=== PATIENT | male | born 1955 | race Caucasian/White ===

== ENCOUNTER → 2018-04-26 09:48 | Outpatient (CLI) | payer MEDICARE, MEDICAID, SELFPAY ==
[2018-04-26 11:01] LABS: Alanine Aminotransferase 32 IU/L (21-72); Albumin 4.5 g/dL (3.5-5.0); Albumin Globulin Ratio 1.5 (1.0-2.8); Alkaline Phosphatase 68 U/L (38-126); Aspartate Aminotransferase 27 IU/L (17-59); Bilirubin Total 0.5 mg/dL (0.2-1.3); Blood Urea Nitrogen 18 mg/dL (9-20); Calcium 9.5 mg/dL (8.4-10.2); Carbon Dioxide 28 mmol/L (22-32); Chloride 104 mmol/L (98-107); Estimated Glomerular Filt Rate > 60.0 mL/min (>60); Glucose 103 mg/dL (80-110); HEMOLYSIS < 15 (0-50); Magnesium 1.8 mg/dL (1.6-2.3); Potassium 3.9 mmol/L (3.4-5.1); Sodium 142 mmol/L (137-145); Total Protein 7.5 g/dL (6.3-8.2)
[2018-05-01 09:44] LABS: Lipoprofile NMR SEE SEPERATE REPORT
== END ==
PROVIDERS: Visit Provider Specialist
DX: I42.0 Dilated cardiomyopathy (principal); E78.5 Hyperlipidemia, unspecified
CPT/HCPCS: 36415; 80053; 83704; 83735

== ENCOUNTER → 2018-05-10 08:56 | Outpatient (CLI) | payer MEDICARE, MEDICAID, SELFPAY ==
[2018-05-10 10:41] LABS: Blood Urea Nitrogen 18 mg/dL (9-20); Calcium 9.2 mg/dL (8.4-10.2); Carbon Dioxide 29 mmol/L (22-32); Chloride 105 mmol/L (98-107); Estimated Glomerular Filt Rate > 60.0 mL/min (>60); Glucose 102 mg/dL (80-110); HEMOLYSIS < 15 (0-50); Potassium 4.1 mmol/L (3.4-5.1); Sodium 141 mmol/L (137-145)
== END ==
PROVIDERS: PCP Physician Assistant; Visit Provider Specialist
DX: I42.0 Dilated cardiomyopathy (principal)
CPT/HCPCS: 36415; 80048

== ENCOUNTER → 2018-06-30 09:29 | Outpatient (CLI) | payer MEDICARE, MEDICAID, SELFPAY ==
--- NOTE | 2018-06-30 | DI.ECHO.S_ITS ---
[facility]---------+ [facility] +---------+ : : [address] : : : : [id number] : : : : Phone: [phone]+ Echocardiogram Report + + :Name: DAVEY MASON Study Date: 06/30/2018 Height: 68 in : :[facility] Weight: 201 lb : : Gender: Male BSA: 2.0 m2 : :: 1955 Age: 63 yrs BP: 110/70 mmHg: :Reason For Study: Cardiomyopathy, Dilated : : Performed By: Lina Burrows : :Referring: Maxim Bolton : + + Interpretation Summary The left ventricle is mildly dilated but is unchanged compared to the previous study. Left ventricular systolic function is moderate to severely reduced with the ejection fraction estimated to be 30-35% with a significant dyssynchronous contraction pattern, consistent with a conduction abnormality, and moderate global hypokinesis that is worse in the proximal and mid inferior wall and inferoseptum which are akinetic but this is unchanged from the previous study. Diastolic parameters suggest a relaxation abnormality of the left ventricle, consistent with probable normal filling pressures. There has been no significant change since the previous study. The right ventricle is normal in size and function and appears more dynamic compared to the previous study. The right ventricular systolic pressure is estimated to be at least 27 mmHg based on an estimated right atrial pressure of 3 mm Hg, and is likely similar compared to the previous study. Both atria are normal in size and both have decreased in size compared to the previous study. There is mild to moderate mitral regurgitation with an eccentric jet of mitral regurgitation that is directed posterolaterally but is unchanged compared to the previous study. There is no other significant valvular heart disease. The ascending aorta is mildly enlarged and measures slightly larger compared to the previous study. Procedure: A two-dimensional transthoracic echocardiogram with color flow and Doppler was performed. The study quality was technically good. Comparison is made with the echocardiogram of 10-20-16. The patient was in normal sinus rhythm during the exam. Left Ventricle: The left ventricle is mildly dilated. This is unchanged compared to the previous study. There is normal left ventricular wall thickness. Left ventricular systolic function is moderate to severely reduced. The ejection fraction is estimated to be 30-35%. There is a significant dyssynchronous contraction pattern, consistent with a conduction abnormality. There is moderate global hypokinesis of the left ventricle. That is worse in the proximal and mid inferior and inferoseptal but this is unchanged and the previous study. Diastolic parameters suggest a relaxation abnormality of the left ventricle, consistent with probable normal filling pressures. There has been no significant change since the previous study. Right Ventricle: The right ventricle is normal in size and function. This is more dynamic compared to the previous study. Atria: Both atria are normal in size. This is decreased in size compared to the previous study. The interatrial septum is intact with no evidence for an atrial septal defect. Mitral Valve: The mitral valve is grossly normal. There is mild to moderate mitral regurgitation. There is an eccentric jet of mitral regurgitation that is directed posterolaterally. This is unchanged compared to the previous study. Aortic Valve: The aortic valve is trileaflet. The aortic valve opens well. No aortic regurgitation is present. Tricuspid Valve: The tricuspid valve is normal in structure and function. There is trace tricuspid regurgitation. The right ventricular systolic pressure is estimated to be at least 27 mmHg based on an estimated right atrial pressure of 3 mm Hg. This is similar compared to the previous study. Pulmonic Valve: The pulmonic valve is not well seen, but is grossly normal. There is no pulmonic valvular regurgitation. There is no other significant valvular heart disease. Great Vessels: The aortic root is normal size. The ascending aorta is mildly enlarged. This is slightly larger compared to the previous study. The aortic arch is normal in size. The IVC is of normal diameter and collapses greater than 50% with a sniff. This suggests a low right atrial pressure of 3 mm Hg. Pericardium/ Pleura There is no pericardial effusion. There is no pleural effusion. MMode/2D Measurements & Calculations LVIDd: 6.2 cm Ao root diam: 3.6 cm LVIDs: 5.5 cm Aortic Jxn: 2.7 cm FS: 11.6 % asc Aorta Diam: 3.8 cm EPSS: 1.6 cm Ao Arch Diam (Prox Trans): 2.7 cm IVSd: 0.87 cm LVPWd: 0.98 cm LV wilkinson. diameter/BSA (cm/m^2): 3.0 LV sys. diameter/BSA (cm/m^2): 2.7 LA dimension: 3.3 cm RA long axis: 4.6 cm LA A2 area: 21.5 cm2 RA area: 16.9 cm2 LA A4 area: 24.6 cm2 RA vol: 52.4 ml LA length (vol): 6.6 cm RA : 25.6 ml/m2 LA vol: 68.4 ml IVC diam: 1.1 cm LA vol index: 33.4 ml/m2 RVDd major: 5.6 cm RVD1 (basal): 3.1 cm RVD2 (mid): 2.9 cm Doppler Measurements & Calculations Ao V2 max: 105.7 cm/sec MV E max cristi: 74.6 cm/sec Ao V2 mean: 76.8 cm/sec MV A max cristi: 109.6 cm/sec Ao max P.5 mmHg MV E/A: 0.68 Ao mean P.6 mmHg Med Peak E' Cristi: 2.4 cm/sec Ao V2 VTI: 25.1 cm E/E' med: 30.8 Lat Peak E' Cristi: 5.9 cm/sec E/E' lat: 12.6 E/e' average: 21.7 MV dec time: 0.12 sec TR max cristi: 243.6 cm/sec TR max P.7 mmHg PA V2 max: 70.3 cm/sec PA V2 mean: 47.7 cm/sec PA mean P.0 mmHg PA Accel Time: 0.12 sec Reading Physician:PM
== END ==
PROVIDERS: Visit Provider Physician Assistant Medical
DX: I34.0 Nonrheumatic mitral (valve) insufficiency (principal); I42.0 Dilated cardiomyopathy
CPT/HCPCS: 93306

== ENCOUNTER → 2018-07-05 12:02 | Outpatient (CLI) | payer MEDICARE, MEDICAID, SELFPAY ==
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
[2018-07-05 12:38] LABS: Estimated Glomerular Filt Rate > 60.0 mL/min (>60)
== END ==
PROVIDERS: PCP Family Medicine; Visit Provider Family Medicine
DX: R91.8 Other nonspecific abnormal finding of lung field (principal); J43.9 Emphysema, unspecified; I25.10 Atherosclerotic heart disease of native coronary artery without angina pectoris
CPT/HCPCS: 36415; 71260; 82565

== ENCOUNTER → 2018-08-23 11:37 | Outpatient (CLI) | payer MEDICARE, MEDICAID, SELFPAY ==
[2018-08-23 12:46] LABS: Alanine Aminotransferase 25 IU/L (21-72); Albumin 4.1 g/dL (3.5-5.0); Albumin Globulin Ratio 1.6 (1.0-2.8); Alkaline Phosphatase 73 U/L (38-126); Aspartate Aminotransferase 22 IU/L (17-59); Bilirubin Total 0.4 mg/dL (0.2-1.3); Blood Urea Nitrogen 16 mg/dL (9-20); Calcium 9.4 mg/dL (8.4-10.2); Carbon Dioxide 28 mmol/L (22-32); Chloride 101 mmol/L (98-107); Estimated Glomerular Filt Rate > 60.0 mL/min (>60); Globulin 2.6 g/dL (1.7-4.1); Glucose 93 mg/dL (80-110); HEMOLYSIS < 15 (0-50); Potassium 4.9 mmol/L (3.4-5.1); Sodium 137 mmol/L (137-145); Total Protein 6.7 g/dL (6.3-8.2)
[2018-08-28 10:47] LABS: Lipoprofile NMR SEE SEPERATE REPORT
== END ==
PROVIDERS: Visit Provider Specialist
DX: I42.0 Dilated cardiomyopathy (principal); E78.2 Mixed hyperlipidemia
CPT/HCPCS: 36415; 80053; 83704

== ENCOUNTER 2018-09-07 14:07 | Day surgery (SDC) | payer MEDICARE, MEDICAID, SELFPAY ==
--- NOTE | 2018-09-07 | PATH_ITS ---
[facility] Accession Number: [id number] . 01 Material submitted: . PART A: colon - SIGMOID POLYP AT 40CM PART B: colon - SIGMOID POLYP AT 30CM PART C: colon - SIGMOID POLYP AT 25CM PART D: colon - SIGMOID POLYP AT 20CM PART E: colon - SIGMOID POLYP AT 15CM PART F: rectum - RECTAL POLYPS X3 . 02 Diagnosis: A. Sigmoid Colon Polyp at 40 cm: Tubular adenoma. . B. Sigmoid Colon Polyp at 30 cm: Polypoid mixed tubular villiform adenoma totally excised in the plane of section. . C. Biopsy, Sigmoid Colon Polyp at 25 cm: Polypoid submucosal lipoma, negative for atypia. . D. Biopsy, Sigmoid Colon Polyp at 20 cm: Hyperplastic polyp involving both biopsy fragments. . E. Biopsy, Sigmoid Colon Polyp at 15 cm: Polypoid mixed tubular villiform adenoma. . F. Biopsy, Rectal Polyps: Hyperplastic polyp involving all biopsy fragments. [facility]/09/12/2018 . 02 Electronically signed: . Dakotah Schmidt MD, Pathologist NPI- [id number] . 01 Gross description: . Part A: SIGMOID POLYP AT 40CM: Received in formalin are multiple fragment(s) of beaver, soft tissue measuring 0.8 x 0.6 x 0.4 cm in aggregate submitted entirely in 1 cassette(s) Part B: SIGMOID POLYP AT 30CM: Received in formalin is 1 fragment(s) of beaver, soft tissue measuring 0.8 x 0.7 x 1.7 cm which is inked, bisected and submitted entirely in 1 cassette(s) Part C: SIGMOID POLYP AT 25CM: Received in formalin is 1 fragment(s) of beaevr, soft tissue measuring 1.2 x 0.7 x 0.2 cm submitted entirely in 1 cassette(s) Part D: SIGMOID POLYP AT 20CM: Received in formalin are 2 fragment(s) of beaver, soft tissue measuring 0.5 x 0.3 x 0.3 cm to 0.4 x 0.3 x 0.2 cm submitted entirely in 1 cassette(s) Part E: SIGMOID POLYP AT 15CM: Received in formalin is 1 fragment(s) of beaver, soft tissue measuring 0.8 x 0.5 x 1.1 cm which is inked, bisected and submitted entirely in 1 cassette(s) Part F: RECTAL POLYPS X3: Received in formalin are multiple fragment(s) of beaver, soft tissue measuring 0.7 x 0.6 x 0.2 cm in aggregate submitted entirely in 1 cassette(s) /CKI /CKI . 02 Pathologist provided ICD-10: D12.5 . 02 CPT . 238109, 443586, 646970, 839015, 139710, 200002 Performed at: 01 [facility] [address] [id number] MD Mario Metz MD Phone: [phone] Performed at: 02 [facility] [place] [address] [place], [place] [id number] MD Celsa Mac MD Phone: [phone]
--- NOTE | 2018-09-07 13:14 | PM.HP.1 ---
History of Present Illness Date Patient Seen: 09/07/18 Time Patient Seen: 15:14 Chief complaint: [id number] Narrative: 63yo M for first screening colonoscopy. No family history, no alarm symptoms. He has dilated cardiomyopathy and is followed for this, no recent changes. Patient History Social History household members: family Meds Home Medications Medication Instructions Recorded Confirmed Type atorvastatin 80 mg PO DAILY 09/07/18 09/07/18 History lisinopril 2.5 mg PO DAILY 09/07/18 09/07/18 History metoprolol succinate 25 mg PO DAILY 09/07/18 09/07/18 History Allergies Allergy/AdvReac Type Severity Reaction Status Date / Time No Known Drug Allergies Allergy Verified 09/07/18 14:31 Review of Systems Constitutional Constitutional: Reports as per HPI Exam Narrative Exam Narrative: AAO, NAD, male of healthy weight EOMI, MMM, no scleral icterus unlabored RA soft, nt/nd MAEW visible skin dry and intact Assessment & Plan (1) Screening for colorectal cancer: Current visit: No Status: Acute Assessment & Plan narrative: - plan for low risk screening colonoscopy --> all R/B/A discussed and pt wishes to proceed
[2018-09-07 14:34] VITALS: BP 116/77; PULSE 98; RESP 16; TEMP 36.3; O2SAT 95; BMI 28.8
[2018-09-07] MEDS: SODIUM CHLORIDE 0.9% 1,000 ML 200 ML IV (14:41)
[2018-09-07] MEDS: fentaNYL 250 MCG/5 ML INJ IV (17:41)
[2018-09-07] MEDS: MIDAZOLAM 5 MG/5 ML VIAL IV (17:41)
[2018-09-07 17:58] VITALS: BP 136/78; PULSE 100; RESP 17; TEMP 36.1; O2SAT 95
[2018-09-07 18:04] VITALS: BP 123/89; PULSE 100; RESP 19; O2SAT 95
[2018-09-07 18:07] VITALS: BP 137/93; PULSE 99; RESP 19; TEMP 36.2; O2SAT 95
--- NOTE | 2018-09-07 18:11 | SUR.PHASEI ---
stable pacu stay
[2018-09-07 18:30] VITALS: BP 128/86; PULSE 88; RESP 19; TEMP 36.4; O2SAT 96
--- NOTE | 2018-09-08 10:31 | PM.OP.ENDO ---
Operative Date/Time/Diagnoses Date of procedure: 09/07/18 Time of procedure: 18:00 Pre-op diagnosis: Low risk screening Post-op diagnosis: same Procedure & Clinicians Study performed: Low risk screening colonoscopy Same procedure as scheduled: Yes Indications: 63yo M with no family or personal history of CRC for first sceening colonoscopy. All risks, benefits, and alternatives discussed. Surgeon: Joelle Hall Procedure Notes SCOAP/Timeout: 1658 Procedure in detail: After obtaining informed consent, the patient was brought to the GI suite and placed in the left lateral decubitus position on the examination table. After placement of appropriate monitors, the patient was given incremental doses of Versed and Fentanyl until an adequate level of sedation was achieved; patient noted as we started that he was a five decade narcotic user so he remained light throughout the procedure. A time out was held per SCOAP protocol. A digital rectal examination was performed and did not reveal any masses or obstructing lesions. The colonoscope was gently passed into the patient's anus and the entire colon navigated to the level of the cecum with minimal difficulty. Prep was poor with thick green liquid and moderate particulate matter, most of which was cleared with suction and irrigation. Once in the cecum, the scope was slowly withdrawn being sure to go before and beyond all mucosal folds and prominences as able to get a thorough examination. Several polyps were identified and removed throughout the sigmoid and rectum, detailed below. Removal and retrieval was arduous due to patient's light sedation and constant movement as well as him expelling gas frequently, causing colon wall collapse and spasm. At the level of the rectal vault, the scope was retroflexed and the internal anal canal was examined. The scope was straightened and air aspirated from the colon. The instrument was removed from the patient's body and the procedure was concluded. The patient was allowed to awaken from sedation without difficulty and taken to the post-anesthesia care unit in good condition. Scope withdrawal time: 27 Sedation minutes: 50 Findings: polyp (1. Sigmoid polyp @40cm (0.5cm) 2. Sigmoid polyp @30cm (2cm) 3. Sigmoid polyp @25cm (0.5cm) 4. Sigmoid polyp @20cm (1cm) 5. Sigmoid polyp @15cm (0.5cm) 6. Rectal polyps x3 (1-2mm)) Specimen(s): other (Sigmoid polyps x5, Rectal polyps x3) Complications: none Impression: 1. Numerous sigmoid polyps, ranging from 0.5cm - 2cm 2. Rectal polyps x3, 1-2mm 3. High tolerance to medications, would recommend propofol sedation for further procedures Recommendations: Colonscopy in 1 year (pending path) Follow up: weeks Disposition: PACU
== END 2018-09-07 18:45 | disposition home or self-care (01) ==
PROVIDERS: Visit Provider Surgery
PROC: 0DJD8ZZ Inspection of Lower Intestinal Tract, Via Natural or Artificial Opening Endoscopic (ICD-10-PCS; CPT 45378; principal; 2018-09-07 15:00)
DX: Z12.11 Encounter for screening for malignant neoplasm of colon (principal); D12.5 Benign neoplasm of sigmoid colon; D12.8 Benign neoplasm of rectum
CPT/HCPCS: 45380; 88305; 99152; 99153; J2250; J3010

== ENCOUNTER → 2018-10-30 14:54 | Outpatient (CLI) | payer MEDICARE, MEDICAID, SELFPAY ==
[2018-10-30 16:00] LABS: BUN Creatinine Ratio 22.2 (6-22); Blood Urea Nitrogen 20 mg/dL (9-20); Calcium 9.4 mg/dL (8.4-10.2); Carbon Dioxide 27 mmol/L (22-32); Chloride 106 mmol/L (98-107); Estimated Glomerular Filt Rate > 60.0 mL/min (>60); Glucose 101 mg/dL (80-110); HEMOLYSIS < 15 (0-50); Potassium 4.5 mmol/L (3.4-5.1); Sodium 141 mmol/L (137-145)
== END ==
PROVIDERS: Visit Provider Specialist
DX: I42.0 Dilated cardiomyopathy (principal)
CPT/HCPCS: 36415; 80048

== ENCOUNTER → 2019-02-26 12:19 | Outpatient (CLI) | payer MEDICARE, MEDICAID, SELFPAY ==
[2019-02-26 13:58] LABS: Alanine Aminotransferase 31 IU/L (<50); Albumin 4.4 g/dL (3.5-5.0); Albumin Globulin Ratio 1.9 (1.0-2.8); Alkaline Phosphatase 70 U/L (38-126); Aspartate Aminotransferase 34 IU/L (17-59); BUN Creatinine Ratio 24.4 (6-22); Bilirubin Total 0.7 mg/dL (0.2-1.3); Blood Urea Nitrogen 22 mg/dL (9-20); Calcium 9.7 mg/dL (8.4-10.2); Carbon Dioxide 27 mmol/L (22-32); Chloride 105 mmol/L (98-107); Estimated Glomerular Filt Rate > 60.0 mL/min (>60); Globulin 2.3 g/dL (1.7-4.1); Glucose 92 mg/dL (80-110); HEMOLYSIS 23 (0-50); Magnesium 1.7 mg/dL (1.6-2.3); Potassium 4.7 mmol/L (3.4-5.1); Sodium 141 mmol/L (137-145); Total Protein 6.7 g/dL (6.3-8.2)
[2019-02-28 10:50] LABS: Lipoprofile NMR SEE SEPARATE REPORTS
== END ==
PROVIDERS: Visit Provider Specialist
DX: I42.0 Dilated cardiomyopathy (principal); E78.2 Mixed hyperlipidemia
CPT/HCPCS: 36415; 80053; 83704; 83735

== ENCOUNTER → 2019-03-15 08:55 | Outpatient (CLI) | payer MEDICARE, MEDICAID, SELFPAY ==
[2019-03-15 10:22] LABS: BUN Creatinine Ratio 21.1 (6-22); Blood Urea Nitrogen 19 mg/dL (9-20); Calcium 9.3 mg/dL (8.4-10.2); Carbon Dioxide 28 mmol/L (22-32); Chloride 103 mmol/L (98-107); Estimated Glomerular Filt Rate > 60.0 mL/min (>60); Glucose 180 mg/dL (80-110); HEMOLYSIS < 15 (0-50); Magnesium 1.8 mg/dL (1.6-2.3); Potassium 4.4 mmol/L (3.4-5.1); Sodium 138 mmol/L (137-145)
== END ==
PROVIDERS: Visit Provider Specialist
DX: I42.0 Dilated cardiomyopathy (principal); E78.2 Mixed hyperlipidemia
CPT/HCPCS: 36415; 80048; 83735

== ENCOUNTER 2019-03-26 09:55 | Day surgery (SDC) | payer MEDICARE, MEDICAID, SELFPAY ==
[2019-03-26] VITALS (7 sets, daily range): BP systolic 100–142; BP diastolic 60–90; PULSE 85–115; RESP 11–20; TEMP 36.2–36.6; O2SAT 94–98; BMI 29.1
--- NOTE | 2019-03-26 | PATH_ITS ---
[facility] Accession Number: [id number] . 01 Material submitted: . PART A: cecum - CECAL POLYP BIOPSY PART B: colon - COLON POLYP BIOPSY AT 40 CM PART C: colon - COLON POLYP BIOPSY AT 20 CM . 02 Diagnosis: A. Cecum, Polyp, Biopsy: Tubular adenoma. . B. Colon, Polyp at 40 cm, Biopsy: Tubular adenoma. . C. Colon, Polyp at 20 cm, Biopsy: Multiple fragments of tubular adenoam and hyperplastic polyp. [facility]V 03/27/2019 1322 Local . 02 Electronically signed: . Celsa Mac MD, Pathologist NPI- [id number] . 01 Gross description: . Part A: CECAL POLYP BIOPSY: Received in formalin are 3 fragment(s) of beaver, soft tissue measuring 0.1 x 0.1 x 0.1 cm to 0.3 x 0.2 x 0.2 cm submitted entirely in 1 cassette(s) Part B: COLON POLYP BIOPSY AT 40 CM: Received in formalin are 2 fragment(s) of beaver, soft tissue measuring 0.2 x 0.2 x 0.2 cm to 0.3 x 0.2 x 0.2 cm submitted entirely in 1 cassette(s) Part C: COLON POLYP BIOPSY AT 20 CM: Received in formalin are multiple fragment(s) of beaver, soft tissue measuring 0.1 x 0.1 x 0.1 cm to 0.3 x 0.2 x 0.2 cm submitted entirely in 1 cassette(s) /[facility] [place] 03/26/2019 1950 Local . 02 Pathologist provided ICD-10: D12.0, D12.6 . 02 CPT . 995266, 411727, 500620 Performed at: [address], [place], [place] [id number] MD Mario Metz MD Phone: [phone] Performed at: 02 [place] [id number] [place] [id number] MD Celsa Mac MD Phone: [phone]
[2019-03-26] MEDS: LACTATED RINGERS 1,000 ML 100 ML IV (11:15)
--- NOTE | 2019-03-26 12:50 | PM.HP.1 ---
History of Present Illness History of Present Illness Date Patient Seen: 03/26/19 Time Patient Seen: 12:50 Chief complaint: [id number] Narrative: The patient is a gentleman here for a colonoscopy. He had some polyps removed and this colonoscopy 6 months ago. Recommendation was made to repeat the exam to make sure everything was removed and nothing had grown back. He did not have a good prep at his last colonoscopy and it was very uncomfortable with a lot of movement felt secondary to his heavy narcotic use therefore he is brought in for an exam with the use of probe with all or general anesthesia as per the anesthesiologists recommendations and performance. Patient History Medical History Anxiety (Acute) Arrhythmia (Acute) Arthritis (Acute) Bladder cancer (Chronic) Congenital heart disease (Chronic) Depression (Acute) Emphysema of lung (Acute) Former smoker (Acute) Hepatitis A (Acute) Marijuana smoker (Acute) Myocardial infarct (Acute) Poor sleep (Acute) PTSD (post-traumatic stress disorder) (Acute) Surgical History H/O heart artery stent (Acute) H/O lateral meniscus repair of left knee (Acute) S/P rotator cuff repair (Acute) Family & Social History Family History Mother Heart disease Father Heart disease Family/Other Diabetes mellitus Social History: household members family Tobacco & Substance use: Smoking Status Never smoker alcohol intake current Meds Home Medications and Allergies Home Medications Medication Instructions Recorded Confirmed Type atorvastatin 80 mg PO DAILY 09/07/18 03/26/19 History lisinopril 2.5 mg PO BID 09/07/18 03/26/19 History hydroxyzine pamoate [Vistaril] 25 mg PO BID 03/26/19 03/26/19 History metoprolol succinate 50 mg PO DAILY 03/26/19 03/26/19 History Allergies Allergy/AdvReac Type Severity Reaction Status Date / Time No Known Drug Allergies Allergy Verified 03/26/19 11:13 Review of Systems Review of Systems ROS Unobtainable: All systems reviewed & are unremarkable except as noted in HPI and below Exam Vital Signs (past 8 hours): - 03/26/19 11:16 Temperature 97.1 F L Pulse Rate 115 H Respiratory Rate 20 Blood Pressure 142/85 H Pulse Oximetry 98 Oxygen Delivery Method Room Air Narrative Exam Narrative: Pleasant cooperative patient no apparent distress. Lungs are clear to auscultation. No rales or rhonchi. Heart regular rate and rhythm no murmur gallop. Abdomen is soft nontender without mass. No obvious hernias. Patient is alert and oriented x3. Assessment & Plan Assessment & Plan narrative: The patient for a screening colonoscopy. I have discussed the procedure with them. Risks of bleeding, perforation which would necessitate major operation, failure to find remove all lesions, the potential tattoo were all discussed. All questions were answered. They wished to proceed.
--- NOTE | 2019-03-26 12:53 | PM.PREOP ---
Pre-operative Note Interval Note History & Physical reviewed/Exam performed by Physician: Yes Changes to H&P: No
--- NOTE | 2019-03-26 14:13 | PM.OP.ENDO ---
Operative Date/Time/Diagnoses Date of procedure: 03/26/19 Time of procedure: 14:00 Pre-op diagnosis: History of polyps. Brought back to ensure completely removal and no regrowth of high risk polyps in the colon. Last exam 6 months ago. Post-op diagnosis: same (Multiple small polyps.) Procedure & Clinicians Study performed: Colonoscopy with cold biopsy and hot snare polypectomy Same procedure as scheduled: Yes Indications: Patient with a poor prep on prior exam with serrated adenomas and question of incomplete removal. Brought back for re-examination. Surgeon: Babak Jamil Procedure Notes SCOAP/Timeout: Performed Procedure in detail: The patient was placed in the left lateral decubitus position and underwent IV sedation directed by the surgeon consisting of fentanyl and Versed. Digital exam was unremarkable. His prostate is normal in size and without mass.. The scope was inserted and advanced through the rectum into the sigmoid, descending, transverse, and ascending colon. We reach the cecum identified by the ileocecal valve and the appendiceal opening. There was a small polyp there and it was biopsied and removed. The scope was gradually brought out. Additional Polyps were found at 40 cm and 20 cm. Hot snare was used to remove some of these and the remainder were cauterized to ensure complete removal.. The scope ultimately was retroflexed in the rectum. The appearance was normal. The scope was removed and the patient tolerated the procedure well. The prep was adequate. I had the suction greater of liquid material. Scope withdrawal time: 10 min (excludes bx time) Sedation minutes: 0 (Done by a monitored anesthesia care due to his poor tolerance of his last procedure and has chronic issues of opioids) Findings: diverticulosis (Sigmoid) and polyp (Multiple) Specimen(s): other (Polyps) Complications: none Post-procedure Recommendations: Colonscopy in 3 years
--- NOTE | 2019-03-26 14:24 | SUR.PHASEI ---
Patient A/O x 4. Denies pain/nausea. Tolerating po. + flatulence. States he needs to get home to smoke pot.
--- NOTE | 2019-03-26 14:47 | SUR.PHASEII ---
Patient sitting upright and denies any pain or nausea. Tolerating PO without difficulty.
--- NOTE | 2019-03-26 15:02 | SUR.PHASEII ---
Patient ambulating to bathroom with a steady gait, voided prior to discharge. Patient AAO x 3. Ambulated to waiting area to wait for ride home.
== END 2019-03-26 15:03 | disposition home or self-care (01) ==
PROVIDERS: Visit Provider Specialist
PROC: 0DJD8ZZ Inspection of Lower Intestinal Tract, Via Natural or Artificial Opening Endoscopic (ICD-10-PCS; CPT 45378; principal; 2019-03-26 07:45)
DX: Z12.11 Encounter for screening for malignant neoplasm of colon (principal); Z86.010 Personal history of colon polyps; F41.9 Anxiety disorder, unspecified; I25.2 Old myocardial infarction; F11.21 Opioid dependence, in remission; J43.9 Emphysema, unspecified; Z87.891 Personal history of nicotine dependence; D12.0 Benign neoplasm of cecum; K57.30 Diverticulosis of large intestine without perforation or abscess without bleeding; D12.6 Benign neoplasm of colon, unspecified; K63.5 Polyp of colon
CPT/HCPCS: 45385; 45380; J2704

== ENCOUNTER 2019-04-03 09:14 | Observation (INO) | payer MEDICARE, MEDICAID, SELFPAY ==
[2019-04-03] VITALS (12 sets, daily range): BP systolic 116–147; BP diastolic 76–97; PULSE 64–111; RESP 14–20; TEMP 36.2–36.7; O2SAT 93–99; BMI 29.5
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
[2019-04-03] MEDS: ALBUTEROL/IPRATROPIUM 3 ML AMPUL INH (09:59)
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
[2019-04-03 10:25] LABS: Add Manual Diff / Slide Review NO; Basophils Absolute Auto 100 /uL (0-100); Basophils Percent Auto 1.2 % (0-2); Eosinophils Absolute Auto 100 /uL (0-450); Eosinophils Percent Auto 2.5 % (2-4); Hematocrit 40.5 % (41-53); Hemoglobin 13.9 g/dL (13.5-17.5); Lymphocytes Absolute Auto 1800 /uL (1100-4500); Lymphocytes Percent Auto 30.6 % (25-40); Mean Corpuscular HGB Conc 34.3 % (30-36); Mean Corpuscular Hemoglobin 31.7 PG (26-34); Mean Corpuscular Volume 92.5 fL (80-100); Monocytes Absolute Auto 600 /uL (0-900); Monocytes Percent Auto 9.9 % (3-14); Neutrophils Absolute Auto 3300 /uL (1500-7000); Neutrophils Percent Auto 55.8 % (50-75); Platelet Count 266 X10^3/uL (150-400); Red Blood Cell Count 4.38 X10^6/uL (4.5-5.9); Red Cell Distribution Width 13.6 % (11.6-14.8); White Blood Cell Count 5.9 X10^3/uL (4.5-11.0)
[2019-04-03 10:39] LABS: Alanine Aminotransferase 25 IU/L (<50); Albumin Globulin Ratio 1.7 (1.0-2.8); Alkaline Phosphatase 82 U/L (38-126); Aspartate Aminotransferase 36 IU/L (17-59); Bilirubin Total 0.7 mg/dL (0.2-1.3); Blood Urea Nitrogen 12 mg/dL (9-20); Calcium 8.7 mg/dL (8.4-10.2); Carbon Dioxide 27 mmol/L (22-32); Chloride 105 mmol/L (98-107); Creatine Kinase 320 U/L (55-170); Estimated Glomerular Filt Rate > 60.0 mL/min (>60); Globulin 2.4 g/dL (1.7-4.1); Glucose 140 mg/dL (80-110); HEMOLYSIS < 15 (0-50); Potassium 4.1 mmol/L (3.4-5.1); Sodium 139 mmol/L (137-145); Total Protein 6.4 g/dL (6.3-8.2)
[2019-04-03 10:54] LABS: CKMB % Relative Index 1.2 % (1.5-5.0); Creatine Kinase MB 3.72 ng/mL (<2.37)
[2019-04-03 11:11] LABS: Troponin I 0.154 ng/mL (0.01-0.034)
[2019-04-03] MEDS: ASPIRIN 81 MG CHEW TAB 324 MG PO (11:14)
[2019-04-03 11:31] LABS: PTT Partial Thromboplastin Tim 35 SECONDS (26.4-36.2)
[2019-04-03] MEDS: HEPARIN 5,000 UNIT/ML VIAL 5000 UNIT IV (11:31)
[2019-04-03] MEDS: HEPARIN DRIP 25,000 UNIT/500 ML IV.SOLN 20 UNIT IV (11:33)
--- NOTE | 2019-04-03 12:06 | PC.NURSE ---
Trop noted to be elevated. IV placed and heparin given per MAR. pt denies CP at this time. remains on cardiac monitoring. 2nd troponin drawn and sent per order. needs met at this time.
[2019-04-03 13:15] LABS: Troponin I 0.163 ng/mL (0.01-0.034)
--- NOTE | 2019-04-03 15:43 | PC.NURSE ---
Addendum entered by Ashley Juan R.N. 04/03/19 15:47: Confirmed with ICU that classroom monitor is working. Original Note: Arrival to acute care: (late entry)- Arrived to floor approx [phone]. Settled into bed by special agent in charge Mitch. Heparin drip infusing and was verified by special agent in charge and the nurse from the ED. Patient wants to eat- informed him that we are waiting on MD to make rounds and input orders. Oriented to room and call light and encouraged to call with needs. Light within reach, bed alarm on.
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
[2019-04-03] MEDS: ATORVASTATIN 20 MG TABLET 80 MG PO (16:17)
[2019-04-03 18:30] LABS: Prothrombin Time 11.7 SECONDS (10.1-12.7)
[2019-04-03 18:33] LABS: PTT Partial Thromboplastin Tim 34 SECONDS (26.4-36.2)
--- NOTE | 2019-04-03 18:39 | PC.NURSE ---
Evening note: Shaheen resting in bed, visiting with family. Denies SOB at rest. Denies chest pain or nausea. Does report his lungs ache, lungs with soft expiratory wheeze throughout. VS stable, RA oxygen 92-95% with continuous pulse ox monitoring in place. Dr Acevedo here to see patient at 1515, new orders given to stop heparin drip which I did at approx 1530. IV saline locked. We are awaiting repeat troponin results.
[2019-04-03 18:53] LABS: Troponin I 0.138 ng/mL (0.01-0.034)
[2019-04-03] MEDS: LISINOPRIL 5 MG TABLET 2.5 MG PO (21:27)
[2019-04-04 06:00] LABS: Add Manual Diff / Slide Review NO; Basophils Absolute Auto 100 /uL (0-100); Basophils Percent Auto 0.9 % (0-2); Eosinophils Absolute Auto 200 /uL (0-450); Eosinophils Percent Auto 2.4 % (2-4); Hematocrit 41.4 % (41-53); Hemoglobin 13.7 g/dL (13.5-17.5); Lymphocytes Absolute Auto 2500 /uL (1100-4500); Lymphocytes Percent Auto 34.3 % (25-40); Mean Corpuscular HGB Conc 33.1 % (30-36); Mean Corpuscular Hemoglobin 31.4 PG (26-34); Mean Corpuscular Volume 94.7 fL (80-100); Monocytes Absolute Auto 700 /uL (0-900); Monocytes Percent Auto 9.7 % (3-14); Neutrophils Absolute Auto 3800 /uL (1500-7000); Neutrophils Percent Auto 52.7 % (50-75); Platelet Count 257 X10^3/uL (150-400); Red Blood Cell Count 4.37 X10^6/uL (4.5-5.9); Red Cell Distribution Width 13.7 % (11.6-14.8); White Blood Cell Count 7.2 X10^3/uL (4.5-11.0)
[2019-04-04 06:01] VITALS: BP 117/68; PULSE 87; RESP 18; TEMP 36.8; O2SAT 95
[2019-04-04 06:03] LABS: BUN Creatinine Ratio 14.4 (6-22); Blood Urea Nitrogen 13 mg/dL (9-20); Calcium 8.7 mg/dL (8.4-10.2); Carbon Dioxide 32 mmol/L (22-32); Chloride 103 mmol/L (98-107); Estimated Glomerular Filt Rate > 60.0 mL/min (>60); Glucose 94 mg/dL (80-110); HEMOLYSIS < 15 (0-50); Potassium 4.7 mmol/L (3.4-5.1); Sodium 139 mmol/L (137-145)
[2019-04-04] MEDS: ASPIRIN EC 81 MG TABLET PO (07:48)
[2019-04-04] MEDS: METOPROLOL ER 50 MG TABLET PO (07:48)
[2019-04-04] MEDS: LISINOPRIL 5 MG TABLET 2.5 MG PO (07:49)
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
[2019-04-04 09:33] VITALS: BP 130/75; PULSE 88; RESP 17; TEMP 36.8; O2SAT 94
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
--- NOTE | 2019-04-04 13:11 | PC.NURSE ---
Discharge: Pt reports he is ready for d/c. Has had an AK and Heart failure teaching in the past. Pt reports he always has a certain amt of chest pain, a 1-06/04, none this am, he reports he slept well during the night. Reviewed d/c information, brother here at time of teaching. Pt d/c home via auto w/brother.
== END 2019-04-04 11:30 | disposition home or self-care (01) ==
LOC: ED 13:17 → AC 13:41
PROVIDERS: Nurse Practitioner Adult Health; Admitting Provider Internal Medicine; Emergency Provider Emergency Medicine; Visit Provider Internal Medicine
DX: R79.89 Other specified abnormal findings of blood chemistry (principal); J70.5 Respiratory conditions due to smoke inhalation; I25.10 Atherosclerotic heart disease of native coronary artery without angina pectoris; J43.9 Emphysema, unspecified; F12.90 Cannabis use, unspecified, uncomplicated; F41.9 Anxiety disorder, unspecified; I25.2 Old myocardial infarction; F43.11 Post-traumatic stress disorder, acute; I42.0 Dilated cardiomyopathy; X08.8XXA Exposure to other specified smoke, fire and flames, initial encounter; Y92.009 Unspecified place in unspecified non-institutional (private) residence as the place of occurrence of the external cause
CPT/HCPCS: 36415; 71046; 80048; 80053; 82550; 82553; 84484; 85025; 85610; 85730; 93005; 93010; 94640; 94762; 96365; 96366; 96375; 99281; 99285; G0378; J1644

== ENCOUNTER → 2019-04-30 12:15 | Outpatient (CLI) | payer MEDICARE, MEDICAID, SELFPAY ==
[2019-04-03 15:49] VITALS: BMI 29.5
--- NOTE | 2019-04-30 | DI.US.S_ITS ---
PROCEDURE: US ABDOMEN COMPLETE INDICATIONS: RIGHT UPPER QUADRANT PAIN, LEFT FLANK PAIN TECHNIQUE: Real-time scanning was performed of the abdominal and retroperitoneal organs, with image documentation. COMPARISON: [place], [place], PET/CT SKULL BASE TO MID THIGH, 10/22/2016, 9:25. [facility], CT, CT CHEST W CON, 07/05/2018, 12:58. FINDINGS: Liver: Liver is normal in size and homogeneous in echotexture. Gallbladder: The gallbladder appears normal Biliary ducts: Intrahepatic bile ducts are non-dilated. Extrahepatic bile duct caliber measures 5.0 mm. Normal is 6-7 mm or less in diameter, or 10 mm or less post-cholecystectomy. Pancreas: Visualized portions of the pancreas are sonographically normal. Spleen: Spleen is normal in size and homogeneous in echotexture. Kidneys: Kidneys are normal in size and echotexture. Right kidney measures 9.8 cm long; left kidney measures 10.0 cm long. No hydronephrosis or nephrolithiasis. No solid masses. At the left mid kidney which appears to be a poorly visualized renal cortical cyst measures up to 2.8 cm. This was previously present on CT scanning for PET/CT 10/22/16 and had measured water in density. Aorta: Visualized aorta is normal in caliber at less than 3 cm. Iliacs: Proximal common iliac arteries are normal in caliber at less than 2.5 cm. IVC: Intrahepatic inferior vena cava is patent. Miscellaneous: No free abdominal fluid. IMPRESSION: No hydronephrosis or nephrolithiasis found. Previously identified renal cortical cyst again noted on the left. This was better seen by CT scanning in September of 2016. A definite source of right upper quadrant and left flank pain is not found. Dictated by: Randy Lopes M.D. on 04/30/2019 at 16:40 Approved by: Randy Lopes M.D. on 04/30/2019 at 16:44
== END ==
PROVIDERS: Visit Provider Physician Assistant Medical
DX: R10.11 Right upper quadrant pain (principal); N28.1 Cyst of kidney, acquired
CPT/HCPCS: 76700

== ENCOUNTER → 2019-05-11 15:19 | Outpatient (CLI) | payer MEDICARE, MEDICAID, SELFPAY ==
[2019-04-03 15:49] VITALS: BMI 29.5
[2019-05-11 16:34] LABS: BUN Creatinine Ratio 22.2 (6-22); Blood Urea Nitrogen 20 mg/dL (9-20); Calcium 9.3 mg/dL (8.4-10.2); Carbon Dioxide 30 mmol/L (22-32); Chloride 104 mmol/L (98-107); Estimated Glomerular Filt Rate > 60.0 mL/min (>60); Glucose 105 mg/dL (80-110); HEMOLYSIS < 15 (0-50); Potassium 5.1 mmol/L (3.4-5.1); Sodium 141 mmol/L (137-145)
== END ==
PROVIDERS: Visit Provider Physician Assistant Medical
DX: I42.0 Dilated cardiomyopathy (principal); E78.2 Mixed hyperlipidemia
CPT/HCPCS: 36415; 80048; 83735

== ENCOUNTER → 2019-09-04 14:35 | Outpatient (CLI) | payer MEDICARE, MEDICAID, SELFPAY ==
[2019-04-03 15:49] VITALS: BMI 29.5
--- NOTE | 2019-09-04 | DI.ECHO.S_ITS ---
[facility] +---------+ : : [address] [place] [address] : : : : [id number] : : : : Phone: [phone] Echocardiogram Report + + :Name: DAVEY MASON Study Date: 09/04/2019 Height: 68 in : :[facility] Weight: 207 lb : : Gender: Male BSA: 2.1 m2 : :: 1955 Age: 64 yrs BP: 118/74 mmHg: :Reason For Study: CARDIOMYOPATHY : :Ordering Physician: Char : :Hoang Performed By: Elizabeth Hough : :Referring: CHAR AGUILAR : + + Interpretation Summary Left ventricular systolic function is moderate to severely depressed with an estimated ejection fraction of 30 to 35% with moderate global hypokinesis and akinesis of the inferior septum and inferior wall, extending into the inferoposterior wall. This appears unchanged. There is moderate left ventricular enlargement with an end-diastolic volume of 140 mL, down from 171 mL on the previous study but otherwise there has been no significant change. The right ventricle appears normal in size with borderline reduced systolic function that is unchanged from previous exam. Pulmonary artery pressure cannot be estimated but the CVP is likely around 3 mmHg. Both atria are normal in size and both have decreased in size since the previous study. There is trivial mitral and tricuspid regurgitation, and both are less prominent compared to the previous study. There is no significant valvular abnormality. The ascending aorta is mildly enlarged but unchanged from the previous exam. The patient was in sinus rhythm at 88 to 98 bpm with occasional PVCs. Procedure: A two-dimensional transthoracic echocardiogram with color flow and Doppler was performed. Comparison is made with the echocardiogram of 06/30/2018. The study quality was technically adequate. The patient was in sinus rhythm with heart rates between 88-98 bpm during the exam. Left Ventricle: There is normal left ventricular wall thickness. The left ventricle is moderately dilated. The estimated left ventricular end diastolic volume is 140 mL, down from 171 ml. Left ventricular systolic function is moderate to severely reduced. The ejection fraction is estimated to be 30-35%. There is a mild dyssynchronous contraction pattern, consistent with a conduction abnormality. There is moderate global hypokinesis with akinesis of the proximal and mid inferior wall and inferior septum, extending into the inferoposterior wall. This appears unchanged from the previous study. Left ventricular volumes are slightly smaller. Diastolic function could not be accurately assessed due to contradictory data. Right Ventricle: The right ventricle is normal size. Right ventricular systolic function is at the lower limits of normal. This is unchanged compared to the previous study. Atria: Both atria are normal in size. Both atria have significantly decreased in size since the prior echo exam. There is no Doppler evidence for an interatrial shunt. Mitral Valve: The mitral valve is grossly normal. There is trace mitral regurgitation. This is less prominent compared to the previous study. Aortic Valve: The aortic valve is not well visualized. The aortic valve is grossly normal. The aortic valve opens well. There is no aortic valve stenosis. No aortic regurgitation is present. Tricuspid Valve: The tricuspid valve is not well visualized, but is grossly normal. There is trace tricuspid regurgitation. This is less prominent compared to the previous study. Pulmonary artery pressures cannot be estimated because of the lack of a measurable TR jet velocity but the IVC suggests a CVP of around 3 mmHg. Pulmonic Valve: The pulmonic valve is not well visualized. There is no pulmonic valvular regurgitation. Great Vessels: The aortic root is normal size. The ascending aorta is mildly enlarged. This is unchanged compared to the previous study. The IVC is of normal diameter and collapses greater than 50% with a sniff. This suggests a low right atrial pressure of 3 mm Hg. Pericardium/ Pleura There is no pericardial effusion. There is no pleural effusion. MMode/2D Measurements & Calculations LVIDd: 6.4 cm LVOT diam: 2.4 cm EPSS: 1.6 cm Ao root diam: 3.5 cm IVSd: 0.89 cm asc Aorta Diam: 3.8 cm LVPWd: 0.92 cm Ao Arch Diam (Prox Trans): 2.6 cm LV wilkinson. diameter/BSA (cm/m^2): 3.1 LA A2 area: 17.9 cm2 RA long axis: 3.8 cm LA A4 area: 10.0 cm2 RA area: 11.7 cm2 LA length (vol): 4.4 cm RA vol: 30.9 ml LA vol: 34.1 ml RA : 14.9 ml/m2 LA vol index: 16.4 ml/m2 IVC diam: 1.5 cm RVD1 (basal): 2.9 cm TAPSE: 1.7 cm Doppler Measurements & Calculations Ao V2 max: 102.9 cm/sec LVOT Max Cristi: 66.4 cm/sec Ao V2 mean: 76.5 cm/sec LV V1 max P.8 mmHg Ao max P.2 mmHg LV V1 VTI: 10.8 cm Ao mean P.6 mmHg GUILHERME(I,D): 2.7 cm2 Ao V2 VTI: 17.7 cm GUILHERME(V,D): 2.9 cm2 sev ratio: 0.61 GUILHERME indexed to BSA (cm^2/m^2): 1.3 Med Peak E' Cristi: 3.6 cm/sec PA V2 max: 65.0 cm/sec Lat Peak E' Cristi: 5.4 cm/sec PA V2 mean: 46.7 cm/sec PA mean P.97 mmHg SV(LVOT): 47.9 ml Reading Physician:PM
== END ==
PROVIDERS: Referring Provider Specialist; Visit Provider Specialist
DX: I42.0 Dilated cardiomyopathy (principal); I77.89 Other specified disorders of arteries and arterioles
CPT/HCPCS: 93306

== ENCOUNTER → 2019-11-06 09:32 | Outpatient (CLI) | payer MEDICARE, MEDICAID, SELFPAY ==
[2019-04-03 15:49] VITALS: BMI 29.5
[2019-11-06 10:49] LABS: Alanine Aminotransferase 21 IU/L (<50); Albumin 4.2 g/dL (3.5-5.0); Albumin Globulin Ratio 1.6 (1.0-2.8); Alkaline Phosphatase 71 U/L (38-126); Aspartate Aminotransferase 30 IU/L (17-59); BUN Creatinine Ratio 19.3 (6-22); Bilirubin Total 0.5 mg/dL (0.2-1.3); Blood Urea Nitrogen 17 mg/dL (9-20); Calcium 9.8 mg/dL (8.4-10.2); Carbon Dioxide 29 mmol/L (22-32); Chloride 101 mmol/L (98-107); Estimated Glomerular Filt Rate > 60.0 mL/min (>60); Globulin 2.6 g/dL (1.7-4.1); Glucose 108 mg/dL (80-110); HEMOLYSIS < 15 (0-50); Magnesium 1.8 mg/dL (1.6-2.3); Potassium 5.2 mmol/L (3.4-5.1); Sodium 138 mmol/L (137-145); Total Protein 6.8 g/dL (6.3-8.2)
[2019-11-08 09:08] LABS: Cholesterol, Total 200 mg/dL (100-199); HDL-Cholesterol 55 mg/dL (>39); Historical Reading Comment: (.); LDL Particle 1714 nmol/L (<1000); LDL Size 20.5 nm (>20.5); LDL-Cholsterol 118 mg/dL (0-99); LP-IR Score 64 (<=45); Small LDL- Particle 982 nmol/L (<=527); Triglycerides 136 mg/dL (0-149)
== END ==
PROVIDERS: Referring Provider Specialist; Visit Provider Specialist
DX: I42.0 Dilated cardiomyopathy (principal); E78.2 Mixed hyperlipidemia
CPT/HCPCS: 36415; 80053; 80061; 83704; 83735

== ENCOUNTER → 2020-07-16 14:03 | Outpatient (CLI) | payer OTHER, MEDICAID, SELFPAY ==
[2019-04-03 15:49] VITALS: BMI 29.5
[2020-07-16 17:08] LABS: Alanine Aminotransferase 29 IU/L (<50); Albumin 4.2 g/dL (3.5-5.0); Albumin Globulin Ratio 1.6 (1.0-2.8); Alkaline Phosphatase 81 U/L (38-126); Aspartate Aminotransferase 30 IU/L (17-59); BUN Creatinine Ratio 19.1 (6-22); Bilirubin Total 0.3 mg/dL (0.2-1.3); Blood Urea Nitrogen 18 mg/dL (9-20); Calcium 9.4 mg/dL (8.4-10.2); Carbon Dioxide 31 mmol/L (22-32); Chloride 101 mmol/L (98-107); Estimated Glomerular Filt Rate > 60.0 mL/min (>60); Globulin 2.6 g/dL (1.7-4.1); Glucose 101 mg/dL (80-110); HEMOLYSIS < 15 (0-50); Potassium 4.8 mmol/L (3.4-5.1); Sodium 139 mmol/L (137-145); Total Protein 6.8 g/dL (6.3-8.2)
[2020-07-18 10:40] LABS: Cholesterol, Total 123 mg/dL (100-199); HDL-Cholesterol 59 mg/dL (>39); HDL-Particle (Total) 39.6 umol/L (>=30.5); LDL Particle 385 nmol/L (<1000); LDL Size 20.1 nm (>20.5); LDL-Cholsterol 41 mg/dL (0-99); LP-IR Score 30 (<=45); Small LDL- Particle 210 nmol/L (<=527); Triglycerides 133 mg/dL (0-149)
== END ==
PROVIDERS: Referring Provider Physician Assistant Medical; Visit Provider Specialist
DX: I42.0 Dilated cardiomyopathy (principal); E78.2 Mixed hyperlipidemia
CPT/HCPCS: 36415; 80053; 80061; 83704; 83735

== ENCOUNTER → 2021-02-27 09:46 | Outpatient (CLI) | payer OTHER, MEDICAID, SELFPAY ==
[2019-04-03 15:49] VITALS: BMI 29.5
[2021-02-27 11:48] LABS: Alanine Aminotransferase 52 IU/L (<50); Albumin 4.1 g/dL (3.5-5.0); Albumin Globulin Ratio 1.6 (1.0-2.8); Alkaline Phosphatase 70 U/L (38-126); Aspartate Aminotransferase 46 IU/L (17-59); BUN Creatinine Ratio 18.4 (6-22); Bilirubin Total 0.7 mg/dL (0.2-1.3); Blood Urea Nitrogen 16 mg/dL (9-20); Calcium 9.2 mg/dL (8.4-10.2); Carbon Dioxide 32 mmol/L (22-32); Chloride 101 mmol/L (98-107); Estimated Glomerular Filt Rate > 60.0 mL/min (>60); Globulin 2.6 g/dL (1.7-4.1); Glucose 98 mg/dL (80-110); HEMOLYSIS < 15 (0-50); Potassium 4.8 mmol/L (3.4-5.1); Sodium 139 mmol/L (137-145); Total Protein 6.7 g/dL (6.3-8.2)
[2021-03-01 09:36] LABS: Cholesterol, Total 128 mg/dL (100-199); HDL-Cholesterol 56 mg/dL (>39); HDL-Particle (Total) 43.8 umol/L (>=30.5); LDL Particle 699 nmol/L (<1000); LDL Size 19.9 nm (>20.5); LDL-Cholsterol 45 mg/dL (0-99); LP-IR Score 54 (<=45); Small LDL- Particle 528 nmol/L (<=527); Triglycerides 160 mg/dL (0-149)
== END ==
PROVIDERS: Specialist; Referring Provider Nurse Practitioner; Visit Provider Nurse Practitioner
DX: E78.2 Mixed hyperlipidemia (principal); I42.0 Dilated cardiomyopathy
CPT/HCPCS: 36415; 80053; 80061; 83704; 83735

== ENCOUNTER → 2021-03-26 12:35 | Outpatient (CLI) | payer OTHER, MEDICAID, SELFPAY ==
[2019-04-03 15:49] VITALS: BMI 29.5
[2021-03-26 15:01] LABS: Prostate Specific Antigen Scrn 2.46 ng/mL (0.1-4.0)
== END ==
PROVIDERS: PCP Family Medicine; Referring Provider Family Medicine; Visit Provider Family Medicine
DX: Z12.5 Encounter for screening for malignant neoplasm of prostate (principal)
CPT/HCPCS: 36415; G0103

== ENCOUNTER → 2021-04-15 12:19 | Outpatient (CLI) | payer OTHER, MEDICAID, SELFPAY ==
[2019-04-03 15:49] VITALS: BMI 29.5
[2021-04-15 13:32] LABS: Alanine Aminotransferase 27 IU/L (<50); Albumin 4.6 g/dL (3.5-5.0); Albumin Globulin Ratio 1.6 (1.0-2.8); Alkaline Phosphatase 72 U/L (38-126); Aspartate Aminotransferase 33 IU/L (17-59); BUN Creatinine Ratio 22.9 (6-22); Bilirubin Total 0.7 mg/dL (0.2-1.3); Blood Urea Nitrogen 19 mg/dL (9-20); Calcium 9.3 mg/dL (8.4-10.2); Carbon Dioxide 30 mmol/L (22-32); Chloride 103 mmol/L (98-107); Cholesterol 132 mg/dL (140-199); Estimated Glomerular Filt Rate > 60.0 mL/min (>60); Globulin 2.9 g/dL (1.7-4.1); Glucose 109 mg/dL (80-110); HDL Cholesterol 56 mg/dL (40-60); HEMOLYSIS < 15 (0-50); LDL Cholesterol Calculated 53 mg/dL (<100); Potassium 4.2 mmol/L (3.4-5.1); Sodium 141 mmol/L (137-145); Total Protein 7.5 g/dL (6.3-8.2); Triglycerides 116 mg/dL (35-150)
== END ==
PROVIDERS: PCP Family Medicine; Referring Provider Specialist; Visit Provider Specialist
DX: I10 Essential (primary) hypertension (principal); E78.2 Mixed hyperlipidemia; I42.0 Dilated cardiomyopathy
CPT/HCPCS: 80053; 80061; 83735

== ENCOUNTER → 2021-07-06 13:57 | Outpatient (CLI) | payer OTHER, MEDICAID, SELFPAY ==
[2019-04-03 15:49] VITALS: BMI 29.5
--- NOTE | 2021-07-06 | DI.CT.S_ITS ---
PROCEDURE: CT CHEST ABD PEL W CON INDICATIONS: Personal history of malignant neoplasm of bladder TECHNIQUE: After the administration of oral and intravenous contrast, axial sections acquired from the supraclavicular neck to the pubic symphysis. Coronal and sagittal reformats were performed. For radiation dose reduction, the following was used: automated exposure control, adjustment of mA and/or kV according to patient size. COMPARISON: [facility], CT, CT CHEST W CON, 07/05/2018, 12:58. FINDINGS: Image quality: Excellent. CHEST: Lower Neck: No enlarged lymph nodes. Thyroid: Within normal limits. Axillae: No enlarged lymph nodes. Chest Wall: Unremarkable. Lungs and Airways: Within the right lower lobe, there is a focal masslike area of consolidation that measures 5.4 by 3.1 cm in greatest axial dimension, as on series 3, image 284. Within the anterior right middle lobe, there is a similar appearing poorly defined focus, as on series 3, image 217 measuring 2.9 x 1.8 cm. These foci are minimally smaller than in 2019. No focal infiltrates are seen. Emphysematous changes are seen, which are worst involving the right lung apex. Pleura: No pneumothorax or pleural effusions. Heart: Heart size is normal. No pericardial effusion. Dense coronary artery calcification can be seen. Thoracic Vessels: The aorta and pulmonary arteries demonstrate normal size. Mediastinum and Rosemary: No enlarged lymph nodes. Esophagus: No wall thickening. No hiatal hernia. ABDOMEN: Liver: Unremarkable. Gallbladder: Unremarkable. Biliary ducts: Unremarkable. Pancreas: Unremarkable. Spleen: Unremarkable. Adrenal Glands: Unremarkable. Kidneys and Ureters: Along the medial aspect of the right kidney, there is a nonenhancing water density cyst seen that measures 3.1 cm. The kidneys demonstrate normal size and enhance symmetrically. There is no hydronephrosis. Stomach and Bowel: Stomach, small bowel loops, and colon are unremarkable. Peritoneum: No abnormal intraperitoneal fluid. No free air. Ventral Wall: No hernia. Abdominal Nodes: No retroperitoneal or mesenteric adenopathy by size criteria. Vessels: Aorta and inferior vena cava are normal in size. PELVIS: Pelvic Organs: Unremarkable. Bladder: In this patient with this given history, scrutiny is given to the bladder. No suspicious bladder masses are detected. Pelvic Nodes: No enlarged lymph nodes. Miscellaneous: No inguinal hernias are seen. Bones: Focal L5-S1 degenerative change is seen. Milder degenerative changes are seen elsewhere. IMPRESSION: 2 foci of consolidation can be seen within the right lung, which are minimally smaller than in 2019 and considered to be benign. No suspicious masses are seen. No bladder masses are seen. No enlarged lymph nodes are seen. Emphysematous changes are seen, which are worst within the right upper lung. Incidental note is made of: Dense coronary artery calcification Simple appearing left renal cyst Focal L5-S1 degenerative change Dictated by: Aurelio Bethea M.D. on 07/06/2021 at 16:08 Approved by: Aurelio Bethea M.D. on 07/06/2021 at 16:13
== END ==
PROVIDERS: PCP Family Medicine; Referring Provider Family Medicine; Visit Provider Family Medicine
DX: J43.9 Emphysema, unspecified (principal); N28.1 Cyst of kidney, acquired; M47.817 Spondylosis without myelopathy or radiculopathy, lumbosacral region; I25.10 Atherosclerotic heart disease of native coronary artery without angina pectoris; Z85.51 Personal history of malignant neoplasm of bladder
CPT/HCPCS: 71260; 74177; Q9967

== ENCOUNTER → 2021-08-31 14:09 | Outpatient (CLI) | payer OTHER, MEDICAID, SELFPAY ==
[2019-04-03 15:49] VITALS: BMI 29.5
--- NOTE | 2021-08-31 | DI.RAD.S_ITS ---
PROCEDURE: XR DEXA AXIAL SKELETON INDICATIONS: Encounter for screening for osteoporosis COMPARISON: None. FINDINGS: This blank DEXA report has been sent in error by the PACS system. The correct and complete report will be forthcoming in 1-2 days. Thank you for your patience and understanding. Dictated by: Paulo Davila M.D. on 08/31/2021 at 15:26 Approved by: Paulo Davila M.D. on 08/31/2021 at 15:26
== END ==
PROVIDERS: PCP Family Medicine; Referring Provider Family Medicine; Visit Provider Family Medicine
DX: Z13.820 Encounter for screening for osteoporosis (principal); I25.2 Old myocardial infarction; R06.00 Dyspnea, unspecified; E78.5 Hyperlipidemia, unspecified
CPT/HCPCS: 77080

== ENCOUNTER → 2021-09-11 10:37 | Outpatient (CLI) | payer OTHER, MEDICAID, SELFPAY ==
[2019-04-03 15:49] VITALS: BMI 29.5
[2021-09-11 11:44] LABS: Alanine Aminotransferase 28 IU/L (<50); Albumin 4.4 g/dL (3.5-5.0); Albumin Globulin Ratio 1.6 (1.0-2.8); Alkaline Phosphatase 73 U/L (38-126); Aspartate Aminotransferase 32 IU/L (17-59); BUN Creatinine Ratio 19.5 (6-22); Bilirubin Total 0.6 mg/dL (0.2-1.3); Blood Urea Nitrogen 17 mg/dL (9-20); Carbon Dioxide 30 mmol/L (22-32); Chloride 103 mmol/L (98-107); Estimated Glomerular Filt Rate > 60 mL/min (>60); Globulin 2.7 g/dL (1.7-4.1); Glucose 113 mg/dL (80-110); HEMOLYSIS < 15 (0-50); Magnesium 1.9 mg/dL (1.6-2.3); Potassium 4.5 mmol/L (3.4-5.1); Sodium 140 mmol/L (137-145); Total Protein 7.1 g/dL (6.3-8.2)
[2021-09-14 08:18] LABS: Cholesterol, Total 116 mg/dL (100-199); HDL-Cholesterol 51 mg/dL (>39); HDL-Particle (Total) 37.9 umol/L (>=30.5); LDL Particle 612 nmol/L (<1000); LDL Size 20.1 nm (>20.5); LDL-Cholsterol 44 mg/dL (0-99); LP-IR Score 33 (<=45); Small LDL- Particle 393 nmol/L (<=527); Triglycerides 119 mg/dL (0-149)
== END ==
PROVIDERS: PCP Family Medicine; Referring Provider Specialist; Visit Provider Specialist
DX: I10 Essential (primary) hypertension (principal)
CPT/HCPCS: 36415; 80053; 80061; 83704; 83735

== ENCOUNTER → 2021-09-17 15:54 | Outpatient (CLI) | payer OTHER, MEDICAID, SELFPAY ==
[2019-04-03 15:49] VITALS: BMI 29.5
--- NOTE | 2021-09-17 | DI.ECHO.S_ITS ---
[place] +---------+ [facility] +---------+ : : [address] : [place] [address] : : : : [id number] : : : : Phone: [phone]+ Echocardiogram Report + + :Name: DAVEY MASON Study Date: 09/17/2021 Height: 70 in : :[facility] ReadingLocation: Weight: 220 lb : : Gender: Male BSA: 2.2 m2 : :: 1955 Age: 66 yrs BP: 137/83 mmHg: :Reason For Study: DYSPNEA : :Ordering Physician: LAUREN, : :CHAR Performed By: Elizabeth Hough : :Referring: CHAR AGUILAR : + + Interpretation Summary Left ventricular systolic function remains moderate to severely depressed with an estimated ejection fraction of 30 to 35% with moderate global hypokinesis and akinesis of the inferior septum, proximal and mid inferior wall, and the inferoposterior wall that appears unchanged from the previous study. There continues to be a moderate to severe left ventricular enlargement with normal wall thickness. There is a probable diastolic relaxation abnormality but probable normal filling pressures. There has been no significant change since the previous study. The right ventricle remains normal in size and systolic function. Right ventricular systolic pressure cannot be estimated but CVP is likely around 3 mmHg. Both atria are normal in size although the left atrial size has mildly increased since the previous exam. There is mild mitral regurgitation that is slightly more prominent compared to the previous study but no other significant valvular abnormality. The ascending aorta is mildly enlarged but unchanged from the previous exam. The patient was in sinus rhythm at 72 to 87 bpm which is slightly slower compared to the previous study. Procedure: A two-dimensional transthoracic echocardiogram with color flow and Doppler was performed. The study quality was technically adequate. Comparison is made with the echocardiogram of 09/04/2019. The patient was in sinus rhythm with heart rates between 72-87 bpm during the exam. This is slightly slower compared to the previous study. Left Ventricle: The left ventricle is moderate-severely dilated. The estimated left ventricular end diastolic volume is 154 ml. There is normal left ventricular wall thickness. Left ventricular systolic function is moderate to severely reduced. The ejection fraction is estimated to be 30-35%. There is moderate global hypokinesis of the left ventricle. There continues to be akinesis of the proximal to mid inferior wall, inferior septum, and extending into the inferoposterior wall that appears unchanged from previous exam. Diastolic parameters suggest a relaxation abnormality of the left ventricle, consistent with probable normal filling pressures. This is likely unchanged compared to the previous study. There has been no significant change since the previous study. Right Ventricle: The right ventricle is normal in size and function. This is unchanged compared to the previous study. Atria: Both atria are normal in size. The left atrium has mildly increased in size since the prior echo exam. There is no Doppler evidence for an interatrial shunt. Mitral Valve: The mitral valve leaflets appear normal. There is no evidence of stenosis, fluttering, or prolapse. There is mild mitral regurgitation. This is slightly more prominent compared to the previous study. Aortic Valve: The aortic valve is slightly calcified. The aortic valve opens well. There is no aortic valve stenosis. No aortic regurgitation is present. Tricuspid Valve: The tricuspid valve is not well visualized. There is trace tricuspid regurgitation. Pulmonary artery pressures cannot be estimated because of the lack of a measurable TR jet velocity but the IVC suggests a CVP of around 3 mmHg. Pulmonic Valve: The pulmonic valve is not well seen, but is grossly normal. There is trace pulmonic regurgitation. Great Vessels: The aortic root is normal size. The ascending aorta is mildly enlarged. This is unchanged compared to the previous study. The IVC is of normal diameter and collapses greater than 50% with a sniff. This suggests a low right atrial pressure of 3 mm Hg. Pericardium/ Pleura There is no pericardial effusion. There is no pleural effusion. MMode/2D Measurements & Calculations LVIDd: 6.9 cm LVOT diam: 2.3 cm LVIDs: 6.0 cm Ao root diam: 3.6 cm FS: 13.0 % asc Aorta Diam: 3.7 cm EPSS: 2.1 cm Ao Arch Diam (Prox Trans): 2.3 cm IVSd: 0.81 cm LVPWd: 0.96 cm LV wilkinson. diameter/BSA (cm/m^2): 3.2 LV sys. diameter/BSA (cm/m^2): 2.7 LA A2 area: 22.8 cm2 RA long axis: 4.1 cm LA A4 area: 16.6 cm2 RA area: 13.0 cm2 LA length (vol): 5.8 cm RA vol: 34.7 ml LA vol: 55.1 ml RA : 16.0 ml/m2 LA vol index: 25.3 ml/m2 IVC diam: 2.0 cm RVD1 (basal): 3.7 cm RVD2 (mid): 3.2 cm TAPSE: 1.7 cm Doppler Measurements & Calculations Ao V2 max: 95.2 cm/sec LVOT Max Cristi: 53.2 cm/sec Ao V2 mean: 73.7 cm/sec LV V1 max P.1 mmHg Ao max P.6 mmHg LV V1 VTI: 11.1 cm Ao mean P.3 mmHg GUILHERME(I,D): 2.2 cm2 Ao V2 VTI: 21.3 cm GUILHERME(V,D): 2.4 cm2 sev ratio: 0.52 GUILHERME indexed to BSA (cm^2/m^2): 1.0 MV E max cristi: 64.2 cm/sec PA V2 max: 83.2 cm/sec MV A max cristi: 93.3 cm/sec PA V2 mean: 56.2 cm/sec MV E/A: 0.69 PA mean P.4 mmHg Med Peak E' Cristi: 5.3 cm/sec PA pr(Accel): 22.5 mmHg E/E' med: 12.1 Lat Peak E' Cristi: 8.1 cm/sec E/E' lat: 7.9 E/e' average: 10.0 MV dec time: 0.21 sec SV(LVOT): 47.2 ml Reading Physician:09:49 AM
== END ==
PROVIDERS: PCP Family Medicine; Referring Provider Specialist; Visit Provider Specialist
DX: R06.00 Dyspnea, unspecified (principal); I34.0 Nonrheumatic mitral (valve) insufficiency; I51.7 Cardiomegaly
CPT/HCPCS: 93306

== ENCOUNTER → 2021-10-29 11:30 | Outpatient (CLI) | payer OTHER, MEDICAID, SELFPAY ==
[2019-04-03 15:49] VITALS: BMI 29.5
[2021-10-29 12:52] LABS: Alanine Aminotransferase 24 IU/L (<50); Albumin 3.9 g/dL (3.5-5.0); Albumin Globulin Ratio 1.5 (1.0-2.8); Alkaline Phosphatase 54 U/L (38-126); Aspartate Aminotransferase 28 IU/L (17-59); BUN Creatinine Ratio 21.6 (6-22); Bilirubin Total 0.5 mg/dL (0.2-1.3); Blood Urea Nitrogen 16 mg/dL (9-20); Calcium 8.9 mg/dL (8.4-10.2); Carbon Dioxide 31 mmol/L (22-32); Chloride 102 mmol/L (98-107); Cholesterol 116 mg/dL (140-199); Estimated Glomerular Filt Rate > 60 mL/min (>60); Globulin 2.6 g/dL (1.7-4.1); Glucose 145 mg/dL (80-110); HDL Cholesterol 52 mg/dL (40-60); HEMOLYSIS 23 (0-50); LDL Cholesterol Calculated 31 mg/dL (<100); Magnesium 1.9 mg/dL (1.6-2.3); Potassium 4.8 mmol/L (3.4-5.1); Sodium 138 mmol/L (137-145); Total Protein 6.5 g/dL (6.3-8.2); Triglycerides 167 mg/dL (35-150)
== END ==
PROVIDERS: PCP Family Medicine; Referring Provider Specialist; Visit Provider Specialist
DX: I10 Essential (primary) hypertension (principal); E78.00 Pure hypercholesterolemia, unspecified
CPT/HCPCS: 36415; 80053; 80061; 83735

== ENCOUNTER → 2022-03-25 09:20 | Outpatient (CLI) | payer OTHER, MEDICAID, SELFPAY ==
[2019-04-03 15:49] VITALS: BMI 29.5
[2022-03-25 10:38] LABS: Alanine Aminotransferase 36 IU/L (<50); Albumin 3.9 g/dL (3.5-5.0); Albumin Globulin Ratio 1.6 (1.0-2.8); Alkaline Phosphatase 72 U/L (38-126); Aspartate Aminotransferase 30 IU/L (17-59); BUN Creatinine Ratio 18.2 (6-22); Bilirubin Total 0.4 mg/dL (0.2-1.3); Blood Urea Nitrogen 14 mg/dL (9-20); Calcium 8.9 mg/dL (8.4-10.2); Carbon Dioxide 30 mmol/L (22-32); Chloride 101 mmol/L (98-107); Cholesterol 114 mg/dL (140-199); Estimated Glomerular Filt Rate > 60 mL/min (>60); Globulin 2.5 g/dL (1.7-4.1); Glucose 107 mg/dL (80-110); HDL Cholesterol 55 mg/dL (40-60); HEMOLYSIS < 15 (0-50); LDL Cholesterol Calculated 36 mg/dL (<100); Magnesium 1.8 mg/dL (1.6-2.3); Sodium 139 mmol/L (137-145); Total Protein 6.4 g/dL (6.3-8.2); Triglycerides 116 mg/dL (35-150)
== END ==
PROVIDERS: PCP Family Medicine; Referring Provider Specialist; Visit Provider Specialist
DX: I10 Essential (primary) hypertension (principal); E78.00 Pure hypercholesterolemia, unspecified
CPT/HCPCS: 36415; 80053; 80061; 83735

== ENCOUNTER → 2022-10-06 10:20 | Outpatient (CLI) | payer OTHER, MEDICAID, SELFPAY ==
[2019-04-03 15:49] VITALS: BMI 29.5
[2022-10-06 11:29] LABS: Alanine Aminotransferase 27 IU/L (<50); Albumin 4.2 g/dL (3.5-5.0); Albumin Globulin Ratio 1.3 (1.0-2.8); Alkaline Phosphatase 48 U/L (38-126); Aspartate Aminotransferase 31 IU/L (17-59); BUN Creatinine Ratio 22.5 (6-22); Bilirubin Total 0.7 mg/dL (0.2-1.3); Blood Urea Nitrogen 18 mg/dL (9-20); Calcium 8.4 mg/dL (8.4-10.2); Carbon Dioxide 28 mmol/L (22-32); Chloride 101 mmol/L (98-107); Cholesterol 127 mg/dL (140-199); Estimated Glomerular Filt Rate > 60 mL/min (>60); Globulin 3.2 g/dL (1.7-4.1); Glucose 105 mg/dL (80-110); HDL Cholesterol 50 mg/dL (40-60); LDL Cholesterol Calculated 49 mg/dL (<100); Magnesium 2.1 mg/dL (1.6-2.3); Potassium 5.3 mmol/L (3.4-5.1); Sodium 136 mmol/L (137-145); Total Protein 7.4 g/dL (6.3-8.2); Triglycerides 138 mg/dL (35-150)
[2022-10-06 11:32] LABS: HEMOLYSIS 106 (0-50)
[2022-10-09 12:10] LABS: Cholesterol, Total 132 mg/dL (100-199); HDL-Cholesterol 53 mg/dL (>39); HDL-Particle (Total) 41.5 umol/L (>=30.5); LDL Particle 837 nmol/L (<1000); LDL Size 19.9 nm (>20.5); LDL-Cholsterol 57 mg/dL (0-99); LP-IR Score 60 (<=45); Small LDL- Particle 662 nmol/L (<=527); Triglycerides 126 mg/dL (0-149)
== END ==
PROVIDERS: PCP Family Medicine; Referring Provider Specialist; Visit Provider Specialist
DX: I10 Essential (primary) hypertension (principal); E78.00 Pure hypercholesterolemia, unspecified
CPT/HCPCS: 36415; 80053; 80061; 83704; 83735

== ENCOUNTER → 2023-06-28 09:26 | Outpatient (CLI) | payer MEDICARE, MEDICAID, SELFPAY ==
[2019-04-03 15:49] VITALS: BMI 29.5
[2023-06-28 11:18] LABS: Alanine Aminotransferase 48 IU/L (<50); Albumin 3.8 g/dL (3.5-5.0); Albumin Globulin Ratio 1.5 (1.0-2.8); Alkaline Phosphatase 67 U/L (38-126); Aspartate Aminotransferase 47 IU/L (17-59); BUN Creatinine Ratio 20.5 (6-22); Bilirubin Total 0.4 mg/dL (0.2-1.3); Blood Urea Nitrogen 18 mg/dL (9-20); Calcium 9.1 mg/dL (8.4-10.2); Carbon Dioxide 33 mmol/L (22-32); Chloride 104 mmol/L (98-107); Cholesterol 121 mg/dL (140-199); Estimated Glomerular Filt Rate > 60 mL/min (>60); Globulin 2.6 g/dL (1.7-4.1); Glucose 107 mg/dL (80-110); HDL Cholesterol 57 mg/dL (40-60); HEMOLYSIS < 15 (0-50); LDL Cholesterol Calculated 41 mg/dL (<100); Magnesium 2.1 mg/dL (1.6-2.3); Sodium 138 mmol/L (137-145); Total Protein 6.4 g/dL (6.3-8.2); Triglycerides 114 mg/dL (35-150)
[2023-06-28 11:34] LABS: Potassium 5.5 mmol/L (3.4-5.1)
== END ==
PROVIDERS: PCP Family Medicine; Referring Provider Specialist; Visit Provider Specialist
DX: I10 Essential (primary) hypertension (principal); E78.00 Pure hypercholesterolemia, unspecified
CPT/HCPCS: 36415; 80053; 80061; 83735

== ENCOUNTER → 2024-02-09 16:02 | Outpatient (CLI) | payer MEDICARE, MEDICAID, SELFPAY ==
[2019-04-03 15:49] VITALS: BMI 29.5
--- NOTE | 2024-02-09 16:03 | DI.ECHO.S_ITS ---
[place] +---------+ Hospital : : [address] : : [place] : : [id number] : : Phone: [phone] Echocardiogram Report + + :Name: DAVEY MASON Study Date: 02/09/2024 Height: 69 in : :[facility] ReadingLocation: Weight: 220 lb : : Gender: Male BSA: 2.2 m2 : :: 1955 Age: 68 yrs BP: 126/79 mmHg: :Reason For Study: DILATED CARDIOMYOPATHY : :Ordering Physician: LAUREN, : :CHAR Performed By: Zander Felder : :Referring: CHAR AGUILAR : + + Interpretation Summary Left ventricular systolic function remains moderately reduced with an estimated ejection fraction of around 35% with mild global hypokinesis that appears slightly improved, and continued severe hypokinesis to akinesis of the posterolateral segments, particularly proximally, and extending into the proximal inferior wall that appears unchanged. The left ventricle remains mild to moderately enlarged but visually similar to the previous exam. Diastolic function is challenging to assess because of summation of the mitral inflow pattern but without compelling evidence for elevated filling pressures or change from the previous exam. The right ventricle appears normal and slightly more dynamic compared to the previous study. Right ventricular systolic pressure cannot be estimated but CVP is likely around 3 mmHg. Both atria are normal in size and unchanged. There is no significant valvular abnormality with improvement in the mitral regurgitation seen previously. The aortic root and ascending aorta are mildly enlarged and measures slightly larger compared to the previous study. The patient was in sinus rhythm at 90 to 100 bpm, slightly faster compared to the previous study. Procedure: A two-dimensional transthoracic echocardiogram with color flow and Doppler was performed. The study quality was technically difficult. Comparison is made with the echocardiogram of 09/17/2021. The patient was in sinus rhythm with heart rates between 90-100 bpm during the exam. This is slightly faster compared to the previous study. Left Ventricle: The left ventricle is mild-moderately dilated. The estimated left ventricular end diastolic volume is 205 mL compared to the previous 154 ml. This is visually appears similar compared to the previous study. Left ventricular wall thickness is at the upper limits of normal. There is no ventricular septal defect visualized. Left ventricular systolic function is moderately reduced. Left ventricular ejection fraction is estimated to be around 35% with mild global hypokinesis that appears slightly more dynamic. There continues to be severe hypokinesis of the posterolateral segments, extending into the proximal inferior wall, with near akinesis of the proximal to mid segments but this appears unchanged from the previous study. Diastolic parameters suggest a relaxation abnormality of the left ventricle, consistent with probable normal filling pressures. Although this is compromised because of his relatively rapid rate with summation of his mitral inflow pattern but there is no compelling evidence for any elevated filling pressures or significant change from his previous exam. Right Ventricle: The right ventricle is normal in size and function. This is slightly more dynamic compared to the previous study. Atria: Both atria are normal in size. This is unchanged compared to the previous study. There is no Doppler evidence for an atrial septal defect. Interatrial septal thickening is noted. Mitral Valve: The mitral valve is normal in structure and function. There is trace mitral regurgitation. This is less prominent compared to the previous study. Aortic Valve: The aortic valve is trileaflet. The aortic valve is slightly calcified. The aortic valve opens well. No aortic regurgitation is present. Tricuspid Valve: The tricuspid valve is normal in structure and function. There is trace tricuspid regurgitation. Pulmonary artery pressures cannot be estimated because of the lack of a measurable TR jet velocity but the IVC suggests a CVP of around 3 mmHg. Pulmonic Valve: The pulmonic valve is normal in structure and function. There is no pulmonic valvular regurgitation. There is no significant valvular heart disease. Great Vessels: The aortic root is mildly dilated. The ascending aorta is mildly enlarged. This is slightly larger compared to the previous study. The pulmonary artery is normal size. The IVC is of normal diameter and collapses greater than 50% with a sniff. This suggests a low right atrial pressure of 3 mm Hg. Pericardium/ Pleura There is no pericardial effusion. There is no pleural effusion. MMode/2D Measurements & Calculations LVIDd: 6.2 cm LVOT diam: 2.2 cm LVIDs: 5.2 cm Ao root diam: 4.1 cm FS: 16.1 % asc Aorta Diam: 3.9 cm EPSS: 1.5 cm IVSd: 1.3 cm LVPWd: 1.1 cm LV wilkinson. diameter/BSA (cm/m^2): 2.9 LV sys. diameter/BSA (cm/m^2): 2.4 LA A2 area: 16.6 cm2 RA long axis: 4.7 cm LA A4 area: 18.6 cm2 RA area: 14.4 cm2 LA length (vol): 5.6 cm RA vol: 37.6 ml LA vol: 46.5 ml RA : 17.5 ml/m2 LA vol index: 21.6 ml/m2 IVC diam: 1.1 cm RVD1 (basal): 3.4 cm RVD2 (mid): 2.6 cm TAPSE: 2.9 cm Doppler Measurements & Calculations Ao V2 max: 106.5 cm/sec LVOT Max Cristi: 80.0 cm/sec Ao V2 mean: 79.3 cm/sec LV V1 max P.6 mmHg Ao max P.5 mmHg LV V1 VTI: 16.3 cm Ao mean P.8 mmHg GUILHERME(I,D): 3.2 cm2 Ao V2 VTI: 20.1 cm GUILHERME(V,D): 2.9 cm2 sev ratio: 0.81 GUILHERME indexed to BSA (cm^2/m^2): 1.5 MV E max cristi: 52.1 cm/sec PA V2 max: 74.6 cm/sec MV A max cristi: 104.7 cm/sec PA V2 mean: 42.7 cm/sec MV E/A: 0.50 PA mean P.86 mmHg Med Peak E' Cristi: 2.6 cm/sec PA pr(Accel): 36.2 mmHg E/E' med: 19.7 Lat Peak E' Cristi: 5.2 cm/sec E/E' lat: 10.1 E/e' average: 14.9 MV dec time: 0.09 sec SV(LVOT): 63.7 ml Reading Physician:09:37 AM
== END ==
PROVIDERS: PCP Family Medicine; Referring Provider Specialist; Visit Provider Specialist
DX: I42.0 Dilated cardiomyopathy (principal); I77.810 Thoracic aortic ectasia; I77.89 Other specified disorders of arteries and arterioles
CPT/HCPCS: 93306

== ENCOUNTER → 2024-02-13 09:58 | Outpatient (CLI) | payer MEDICARE, MEDICAID, SELFPAY ==
[2019-04-03 15:49] VITALS: BMI 29.5
[2024-02-13 12:13] LABS: HEMOLYSIS < 15 (0-50)
[2024-02-13 12:14] LABS: Alanine Aminotransferase 34 IU/L (<50); Albumin 4.1 g/dL (3.5-5.0); Albumin Globulin Ratio 1.5 (1.0-2.8); Alkaline Phosphatase 69 U/L (38-126); Aspartate Aminotransferase 35 IU/L (17-59); Bilirubin Total 0.5 mg/dL (0.2-1.3); Blood Urea Nitrogen 16 mg/dL (9-20); Calcium 9.1 mg/dL (8.4-10.2); Carbon Dioxide 31 mmol/L (22-32); Chloride 103 mmol/L (98-107); Estimated Glomerular Filt Rate > 60 mL/min (>60); Globulin 2.7 g/dL (1.7-4.1); Glucose 114 mg/dL (80-110); Sodium 139 mmol/L (137-145); Total Protein 6.8 g/dL (6.3-8.2)
[2024-02-13 12:19] LABS: Potassium 4.8 mmol/L (3.4-5.1)
== END ==
PROVIDERS: PCP Family Medicine; Referring Provider Specialist; Visit Provider Specialist
DX: I10 Essential (primary) hypertension (principal); E78.00 Pure hypercholesterolemia, unspecified
CPT/HCPCS: 36415; 80053; 80061; 83704; 83735

== ENCOUNTER → 2024-12-04 10:38 | Outpatient (CLI) | payer OTHER, SELFPAY ==
[2019-04-03 15:49] VITALS: BMI 29.5
[2024-12-04 12:23] LABS: Hematocrit 44.1 % (41-53); Hemoglobin 14.9 g/dL (13.5-17.5); Mean Corpuscular HGB Conc 33.7 % (30-36); Mean Corpuscular Hemoglobin 31.3 PG (26-34); Mean Corpuscular Volume 92.7 fL (80-100); Platelet Count 242 X10^3/uL (150-400)
[2024-12-04 12:52] LABS: Alanine Aminotransferase 36 IU/L (<50); Albumin 4.2 g/dL (3.5-5.0); Albumin Globulin Ratio 1.8 (1.0-2.8); Alkaline Phosphatase 68 U/L (38-126); Blood Urea Nitrogen 20 mg/dL (9-20); Calcium 9.0 mg/dL (8.4-10.2); Carbon Dioxide 31 mmol/L (22-32); Chloride 101 mmol/L (98-107); Estimated Glomerular Filt Rate > 60 mL/min (>60); Globulin 2.4 g/dL (1.7-4.1); Glucose 102 mg/dL (70-99); HEMOLYSIS < 15 (0-50); Magnesium 2.1 mg/dL (1.6-2.3); Potassium 5.0 mmol/L (3.4-5.1); Sodium 139 mmol/L (137-145); Total Protein 6.6 g/dL (6.3-8.2)
[2024-12-04 12:59] LABS: NT-proBNP (BNP-Adult 18+) 847 pg/mL (<125)
[2024-12-06 12:12] LABS: Cholesterol, Total 111 mg/dL (100-199); HDL-Particle (Total) 30.9 umol/L (>=30.5); Historical Reading Comment: (.); LDL Particle 540 nmol/L (<1000); LDL-Cholsterol 43 mg/dL (0-99); Small LDL- Particle 360 nmol/L (<=527); Triglycerides 75 mg/dL (0-149)
== END ==
PROVIDERS: PCP Family Medicine; Referring Provider Specialist; Visit Provider Specialist
DX: E78.00 Pure hypercholesterolemia, unspecified (principal); R06.09 Other forms of dyspnea; I10 Essential (primary) hypertension; R31.0 Gross hematuria
CPT/HCPCS: 36415; 80053; 80061; 83704; 83735; 83880; 85027